=== PATIENT | female | born 1935 | race Caucasian/White ===

== ENCOUNTER → 2016-04-01 | Outpatient (CLI) | payer OTHER, MEDICARE ==
[~2016-04-01] VITALS: Ht 154.9 cm; Wt 45.0 kg
[2016-04-01] VITALS (12 sets, daily range): BP systolic 101–201; BP diastolic 46–96; PULSE 58–79; TEMP 37; O2SAT 94–100; Ht 154.9 cm; Wt 45.0 kg
[~2016-04-01] MED LIST: ASPI81TA28 PO; ATOR10TA88 PO; BENZOCAIN/TETRACA/BUTAM SPRAY 200 APPLN/20 GM SPRY ONE; BONE SUPPORT PO; CANNULA ONE; CHOL1TAB42 PO; FENTANYL CITRATE INJ 50 MCG/1 ML 2 ML VIAL ONE; LISI-729 PO; MAGN1TAB41 PO; MELA1TAB5 PO; METF-384 PO; MIDAZOLAM HCL 1 MG/ML 2ML VIAL ONE; MULT-506 PO; OMEG10007 PO; TURM500C2 PO; VALE250C PO
--- NOTE | 2016-04-01 08:19 | History and Physical ---
History & Physical Please see the outpatient H&P by DR Vani fleming from 03/22/2016. Information confirmed. 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 Risks including but limited to esophageal perforation, low/high BP, Low/High HR , sore throat, broken tooth, stroke Consent signed.
--- NOTE | 2016-04-01 08:59 | Cardiology Procedure Brief Nt ---
Preliminary Cardiology Note Procedure Date Apr 01, 2016. Pre-Procedure Diagnosis Possible fibroelastoma, retinal artery occlusion Post-Procedure Diagnosis No evidence of fibroelastoma Procedure(s) Performed TODD Dead Mail Checker Fragin Dinkey Brakeman(s) none Estimated Blood Loss none Medication(s) Versed 2mg and Fentanyl 50 mcgs Preliminary Findings No cardiac source of embolus or fibroelastoma Recommendations ASA tx Specimens none Complication(s) None Disposition
--- NOTE | 2016-04-01 09:04 | Discharge Instructions ---
Discharge Instructions Procedure Procedure Date: Apr 01, 2016. Reason for Visit: Retinal Artery Occlusion. Discharge Discharge Date: Apr 01, 2016. Last Recorded Wt (Kilograms): 45.000 Anesthesia Post Anesthesia Instructions: If you have had IV Sedation: * Do not drive today. * Resume driving in 24 hours * Do not make important decisions or sign legal documents today. * Call surgeon for: . 2. Uncontrollable pain. 3. Excessive bleeding. 4. Persistent nausea and vomiting. 5. Medication intolerance (nausea, vomiting or rash). * For nausea and vomiting use only clear liquids such as: tea, soda, bouillon until nausea subsides, then gradually increase diet as tolerated. * If you have any concerns or questions, call your surgeon's office. If physician is unavailable and it is an emergency, call 911 or go to the nearest emergency room. Instructions Activity Recommendations: limitations Recommended Home Diet: resume previous diet (Cold liquids in 3 hours if tolerated advance diet, avoid hot food for 4 hours) Allergies: Coded Allergies: No Known Allergies (Unverified , 02/24/15) Follow Up Mindy Yepez Recommendations: ACTIVITY RECOMMENDATIONS: Resume activities as tolerated with no limitations unless specified. X__ Do not engage in vigorous exercise, sexual activity, or sports for 24 hours. X__ Do not drive or operate any motorized equipment for 24 hours. X__ You may return to work/school tomorrow. _X_ Nothing to eat or drink until gag reflex returns. _x_ No HOT or WARM liquids for _4_ hours. _X_ Avoid "scratchy" foods such as potato chips or pretzels for 24 hours following procedure. SPECIAL CARE: If you experience coughing up or vomiting of blood, contact the office _ Your Doctors Instructions noted above were prepared by provider Romain Valdez. Patient Signature Section: Patient Instructions Signature Page Juliana Patel Patient (or Guardian) Signature/Date: I have read and understand the instructions given to me by my caregivers. Caregiver/RN/Doctor Signature/Date: The above-named patient and/or guardian has received patient instructions on this date. + Original Patient Signature Page (only) stays with chart. Please make copy for patient.
--- NOTE | 2016-04-01 09:25 | TEE ---
*NOTICE TO RECEIVING [employer] This information is strictly Confidential and protected under [place] law. [place] law prohibits you from making any further disclosure of this information unless further disclosure is expressly permitted by the written consent of the person to whom it pertains or is authorized by law. A general authorization for the release of medical or other information is not sufficient for this purpose. Hospital accepts no responsibility if the information is made available to any other person, INCLUDING THE PATIENT. Interpretation Summary * Name: JASON ZEPEDA Study Date: 04/01/2016 08:26 AM BP: 195/87 mmHg * Patient Location: Cardiopulmonary Lab HR: 83 * : 1935 (M/d/yyyy) Gender: Female Height: 61 in * Age: 81 yrs Ethnicity: [place] Weight: 99 lb * Referring Physician: DELFINO * Performed By: Jarod Tapia RCS * * Reason For Study: Eval for CSOE * BSA: 1.4 m2 * -- Conclusions -- * The left ventricle is normal in size. * There is normal left ventricular wall thickness. * The left ventricular wall motion is normal at rest. * Left ventricular systolic function is normal. * LVEF 60% * The right ventricular wall motion is normal. * The right ventricular systolic function is normal. * The right ventricle is grossly normal size. * No evidence of LA/NATHALIE thrombus by 2D or color doppler. NATHALIE velocity >60 cm/s * No evidence of PFO by 2D, color, or aggitated saline * Chiari network in RA. * Grade 3 Plaque in the arch and descending aorta. * No evidence of fibroelastoma. Procedure Details * TODD Probe #2 utilized for procedure. * The study was performed in Cardiopulmonary Department. * Time out was conducted by the physician, nurse, and technical fellow with positive identification of patient and procedure. * Informed consent for Transesophageal Echocardiogram was obtained prior to the procedure. * An intravenous line was placed. A topical anesthetic agent was used for oropharangeal anesthesia. A bite block was inserted. * The patient's vital signs, including blood pressure, heart rate, pulse oximetry and cardiac rhythm were monitored throughout the procedure . * Fentanyl 50 mcg was administered for procedural sedation. * Midazolam 2 mg administered for sedation. * A multifrequency, multiplane transesopheageal echocardiographic endoscope was inserted and manipulated in the standard fashion to achieve multiplane views. * The transesophageal probe was passed without difficulty. * Contrast injection with agitated saline was performed. * The usual views were obtained; basal, mid-esophageal, transgastric and aortic views. * The patient tolerated the procedure well without evidence of orophangeal or esophageal trauma. * A 2D transesophageal echocardiogram was performed. * A 2D transesophageal echocardiogram with color flow Doppler was performed. * A 2D transesophageal echocardiogram with Doppler and color flow Doppler was performed. Left Ventricle * The left ventricle is normal in size. * There is normal left ventricular wall thickness. * Left ventricular systolic function is normal. * LVEF 60% * The left ventricular wall motion is normal at rest. Right Ventricle * The right ventricle is grossly normal size. * The right ventricular systolic function is normal. Atria * The left atrial size is normal. * Right atrial size is normal. * No evidence of LA/NATHALIE thrombus by 2D or color doppler. NATHALIE velocity >60 cm/s No evidence of PFO by 2D, color, or aggitated saline Chiari network in RA. Mitral Valve * The mitral valve is grossly normal. * There is trace mitral regurgitation. Tricuspid Valve * The tricuspid valve is not well visualized, but is grossly normal. * There is mild tricuspid regurgitation. Aortic Valve * The aortic valve is tricuspid. The leaflet thickness if normal. There is no aortic stenosis, and no significant insufficiency. * Trace aortic regurgitation. Pulmonic Valve * The pulmonic valve is not well seen, but is grossly normal. Great Vessels * The aortic root is normal size. * Grade 3 Plaque in the arch and descending aorta. Pericardium * There is no pericardial effusion. Right Ventricle * The right ventricular wall motion is normal.
--- NOTE | 2016-04-27 09:45 | CODING QUERY MEDICAL NECESSITY ---
SUPPORTING DIAGNOSIS NEEDED A supporting diagnosis is required for the test/procedure performed on this patient in order for us to be reimbursed by the patient's insurance. Please provide a supporting diagnosis for the following test/procedure listed below next to the test name along with your signature. *If there is no additional diagnosis for this patient that would support the following test/procedure please document that below next to the test/procedure. Test(s)/Procedure(s) that require a supporting diagnosis: DOS 2/3 * Transesophageal Echo DIAGNOSIS: Provider Signature: Date: Thank you Isela Becerril Health Information Management Once completed, please kindly fax back to [phone] For questions please call [phone]
== END | disposition home or self-care (01) ==
LOC: C.CPL 07:11
PROVIDERS: ATTEND Family Medicine
DX: H34.239 Retinal artery branch occlusion, unspecified eye (principal)

== ENCOUNTER → 2016-05-10 | Day surgery (SDC) | payer OTHER, MEDICARE ==
[2016-04-25 10:46] VITALS: Ht 154.3 cm; Wt 44.5 kg
[~2016-05-10] VITALS: Ht 154.3 cm; Wt 44.5 kg
[~2016-05-10] MED LIST changes: +ATOR10TA82 PO; -ATOR10TA88 PO; -BENZOCAIN/TETRACA/BUTAM SPRAY 200 APPLN/20 GM SPRY ONE; -CANNULA ONE; -FENTANYL CITRATE INJ 50 MCG/1 ML 2 ML VIAL ONE; -MIDAZOLAM HCL 1 MG/ML 2ML VIAL ONE
== END | disposition home or self-care (01) ==
LOC: EDSTATUS 11:00 → C.PAT 13:39
PROVIDERS: ATTEND Ophthalmology
DX: H26.9 Unspecified cataract (principal)

== ENCOUNTER → 2016-05-16 | Outpatient (CLI) | payer OTHER, MEDICARE ==
[~2016-05-16] MED LIST changes: -ATOR10TA82 PO; +ATOR10TA88 PO
[2016-05-16 17:05] LABS: ALT/SGPT 25 U/L (12-78); AST/SGOT 18 U/L (15-37); BLOOD UREA NITROGEN 14 mg/dl (7-18); BUN/CREATININE RATIO 20.7 (10-20); CALCIUM 9.2 mg/dl (8.5-10.1); CARBON DIOXIDE 33 mmol/L (21-32); CHLORIDE 104 mmol/L (98-107); CREATININE 0.69 mg/dl (0.60-1.20); GLUCOSE 117 mg/dl (70-99); POTASSIUM 3.8 mmol/L (3.5-5.1); SODIUM 143 mmol/L (136-145)
[2016-05-16 17:10] LABS: ALB/GLOB RATIO 1.2 (0.9-2); ALKALINE PHOSPHATASE 46 U/L (45-117); CHOLESTEROL 154 mg/dl (0-200); CHOLESTEROL/HDL RATIO 2.2; HDL CHOLESTEROL 69 mg/dl; LDL CHOLESTEROL CALCULATED 74 mg/dl; TRIGLYCERIDES 53 mg/dl (0-150); VERY LOW DENSITY LIPOPROT CALC 11 mg/dl
== END | disposition home or self-care (01) ==
LOC: C.LABBC 12:20
PROVIDERS: ATTEND Family Medicine
DX: E78.5 Hyperlipidemia, unspecified (principal)

== ENCOUNTER → 2017-10-10 | Day surgery (SDC) | payer OTHER, MEDICARE ==
[2017-07-10 11:45] VITALS: Ht 156.2 cm; Wt 44.5 kg
[~2017-10-10] VITALS: Ht 156.2 cm; Wt 44.5 kg
[~2017-10-10] MED LIST changes: +500ML BSS 0.3ML EPI 1:1000PF IRRIG ONE; +ACETAMINOPHEN 325 MG TAB PO PRN; +AMVISC PLUS 0.8ML SYRINGE INT OCU ONE; +ATOR10TA82 PO; -ATOR10TA88 PO; +ATROPINE SULFATE 0.1 MG/ML 5ML SYR IV PRN; -BONE SUPPORT PO; +BSS FLUSH ONE; +CALC600T9 PO; +CYCLOPENTOLATE HCL 1% OP SOLN PER DROP CHARGE OPR SCH; +EpHEDrine SULFATE INJ 50 MG/ML AMP IV PRN; +EpINEphrine INJ 1MG/ML AMP 1 MG/ML AMP ONE; +GATIFLOXACIN OP SOLN PER DROP CHARGE OPR SCH; +KETOROLAC 0.5% OP SOLN PER DROP CHARGE OPR SCH; +LACTATED RINGER'S 1000ML 500 ML IV SCH; +LIDOCAINE 3.5% OPH GEL PER APPLICATION CHARGE ONE; +LIDOCAINE HCL 1% MPF 2 ML VIAL ONE; +MIDAZOLAM HCL 1 MG/ML 2ML VIAL ONE; -MULT-506 PO; +OCUCOAT 1 ML SOLN IO ONE; +PATIENT'S ALLERGY INFO NEEDS ENTERED SCH; +PHENYLEPHRINE HCL 2.5% OP SOLN PER DROP CHARGE OPR SCH; +POVIDONE-IODINE OP SOLN 30 ML BTL ONE; +PROPARACAINE 0.5% OP SOLN PER DROP CHARGE OPR SCH; +TOBRAMYCIN/DEXAMETHASONE OPH OINT PER APPLN CHARGE ONE; +TROPICAMIDE 1% OP SOLN PER DROP CHARGE OPR SCH; -VALE250C PO
[2017-10-10] MEDS: PHENYLEPHRINE HCL 2.5% OP SOLN PER DROP CHARGE OPR SCH ×2 (07:23→07:28)
[2017-10-10] MEDS: TROPICAMIDE 1% OP SOLN PER DROP CHARGE OPR SCH ×2 (07:24→07:29)
[2017-10-10] MEDS: CYCLOPENTOLATE HCL 1% OP SOLN PER DROP CHARGE OPR SCH ×2 (07:25→07:30)
[2017-10-10] MEDS: KETOROLAC 0.5% OP SOLN PER DROP CHARGE OPR SCH ×2 (07:26→07:31)
[2017-10-10] MEDS: GATIFLOXACIN OP SOLN PER DROP CHARGE OPR SCH ×2 (07:27→07:39)
--- NOTE | 2017-10-10 07:49 | History & Physical Bridge - SC ---
H&P Re-Evaluation Bridge Note: I have examined the patient, reviewed the History & Physical and in the interval since the performance of the History & Physical I have noted the following changes of clinical significance: No changes noted
--- NOTE | 2017-10-10 08:33 | [facility] Operative Report ---
Operative Report Date of Service Oct 10, 2017. Operative Report 1. PREOPERATIVE DIAGNOSIS: Cataract of the right eye. 2. POSTOPERATIVE DIAGNOSIS: Same. 3. PROCEDURE: Phacoemulsification with intraocular lens implantation of the right eye. SURGEON: Dr. Yariel Francois. ANESTHESIA: Topical Lidocaine gel, 1% Non- Preserved intracameral Lidocaine, and monitored intravenous sedation. INDICATIONS FOR THE PROCEDURE: The patient is a 82 - year-old female with a history of cataract of the right eye causing significant visual impairment. The details of the proposed procedure were explained to the patient who asked appropriate questions and following discussion of all risks, benefits and alternatives agreed to have the procedure done. 4. OPERATION AND FINDINGS: DESCRIPTION OF PROCEDURE: After informed consent was obtained, the patient was brought to the Operating [facility] at the [facility]. The patient was placed in a supine position and then the right eye was prepped and draped in the usual sterile fashion for intraocular surgery. A drop of topical Lidocaine gel was placed in the operative eye. A wire lid speculum was then placed in the fornices. A corneal paracentesis was then created temporally. The Non-Preserved Lidocaine was then instilled into the anterior chamber. The anterior chamber was then pressurized with viscoelastic. A 2.0 mm clear corneal incision was then created temporally. A cystotome was inserted into the anterior chamber and used to create a tear in the anterior lens capsule. This capsular tear was then used to create a small flap and the flap was dragged in a counterclockwise direction in order to create a continuous curvilinear capsulorrhexis. Hydrodissection was accomplished with balanced salt solution. Phacoemulsification of the lens nucleus was then performed in a standard [id number] technique. The phaco time was 22 seconds with an average power of 14 %. The remaining cortical material was removed using irrigation aspiration. The capsular bag was then filled with viscoelastic. A [employer] MI60L +19.0 diopters lens was then loaded into the injector and injected into the capsular bag. The remaining viscoelastic was removed with the irrigation aspiration handpiece. The wound was hydrated and then checked and found to be watertight. The intraocular pressure was checked and found to be adequate. The wire lid speculum was removed and the patient's face was cleaned and dried. TobraDex ointment was placed in the inferior fornix. The patient was discharged to the Recovery Room having tolerated the procedure well. There were no complications. The patient will be seen tomorrow in the office for follow-up. I attest to the content of the Intraoperative Record and any orders documented therein. Any exceptions are noted below.
--- NOTE | 2017-10-10 08:34 | Discharge Instructions-SurgCtr ---
Discharge Instructions Date of Service Oct 10, 2017. Visit Reason for Visit: Cataract Right Eye Discharge Discharge Diagnosis / Problem: cataract Discharge Goals Goal(s): Improve function Activity Recommendations Activity Limitations: per Instructions/Follow-up section Anesthesia . Post Anesthesia Instructions: If you have had General Anesthesia or IV Sedation: * Do not drive today. * Resume driving when surgeon permits. * Do not make important decisions or sign legal documents today. * Call surgeon for: 1. Temperature elevations greater than 101 degrees F. 2. Uncontrollable pain. 3. Excessive bleeding. 4. Persistent nausea and vomiting. 5. Medication intolerance (nausea, vomiting or rash). * For nausea and vomiting use only clear liquids such as: tea, soda, bouillon until nausea subsides, then gradually increase diet as tolerated. * If you have any concerns or questions, call your surgeon's office. If physician is unavailable and it is an emergency, call 911 or go to the nearest emergency room. . Diet Recommendations Home Diet: resume previous diet Procedures Procedures Performed: Right Cataract Phacoemulsification With Intraocular Lens Implant Pending Studies Studies pending at discharge: no Medical Emergencies . Who to Call and When: Medical Emergencies: If at any time you feel your situation is an emergency, please call 911 immediately. . Non-Emergent Contact Non-Emergency issues call your: [employer] . . "Provider Documentation" section prepared by Yariel Francois. .
[2017-10-10 08:45] VITALS: TEMP 36.6
[2017-10-10 09:03] VITALS: BP 141/70; PULSE 63; O2SAT 96
--- NOTE | 2017-10-10 09:07 | Anesthesia Progress Nt - [facility] ---
Anesthesia Post Op Note Date & Time Oct 10, 2017 at 09:07 Vital Signs Pain Intensity: 0 Vital Signs Past 12 Hours Date Time Temp Pulse Resp B/P (MAP) Pulse Ox O2 Delivery O2 Flow Rate FiO2 10/10/17 09:03 62 18 141/70 (93) 96 Room Air 63 10/10/17 08:45 36.6 66 16 146/74 (98) 99 Room Air 10/10/17 07:46 66 179/74 (109) 10/10/17 07:17 36.8 75 18 196/80 (118) 98 Room Air Notes Mental Status: alert / awake / arousable, participated in evaluation Pt Amnestic to Procedure: Yes Nausea / Vomiting: adequately controlled Pain: adequately controlled Airway Patency, RR, SpO2: stable & adequate BP & HR: stable & adequate Hydration State: stable & adequate Anesthetic Complications: no major complications apparent
== END | disposition home or self-care (01) ==
LOC: X.SURG 07:00
PROVIDERS: ATTEND Ophthalmology
DX: E11.36 Type 2 diabetes mellitus with diabetic cataract (principal); H26.9 Unspecified cataract; I10 Essential (primary) hypertension; Z88.8 Allergy status to other drugs, medicaments and biological substances; E78.5 Hyperlipidemia, unspecified; Z79.82 Long term (current) use of aspirin; Z79.899 Other long term (current) drug therapy; Z79.84 Long term (current) use of oral hypoglycemic drugs